=== PATIENT | male | born 1985 | race American Indian/Alaskan Native ===

== ENCOUNTER 2019-08-20 03:26 | Emergency (ER) | payer OTHER ==
[2019-08-20 03:34] VITALS: BP 117/81
[2019-08-20] MEDS ORDERED: HYDROcodone/ACETAMINOPHEN 5-325 MG TAB PO ONE (05:00)
--- NOTE | 2019-08-20 05:14 | Emergency Department Report ---
ED Lower Extremity HPI - General Chief Complaint: Extremity Injury, Lower Stated Complaint: HIP AND LEG INJURY ON THE JOB Time Seen by Provider: 08/20/19 04:53 Source: patient Mode of arrival: Ambulatory Limitations: No Limitations - History of Present Illness Initial Comments: Mr. Diez is a 34-year-old -Greek male who presents for right la teral hip pain for the past week. Patient works as a improvement coordinator. Denies fall injury or trauma, describes pain as 510 aching soreness, symptoms are exacerbated by bending and flexing lifting. There is mild limp but ambulation. Is no numbness no tingling no paralysis. symptoms are exacerbated by movement and palpation. MD Complaint: hip injury Onset/Timin -: week(s) Injury: Hip: Right (aching pain ) Type of Injury: unknown Place: home Severity: moderate Severity scale (0 -10): 4 Improves With: rest Worsens With: weight bearing Associated Symptoms: ambulatory - Related Data Previous Rx's Medication Instructions Recorded Last Taken Type Diclofenac Dr (Nf) 50 mg PO TID #30 tab 08/20/19 Unknown Rx methOCARBAMOL [Robaxin TAB] 500 mg PO BID PRN #20 tab 08/20/19 Unknown Rx predniSONE [Deltasone] 40 mg PO DAILY 5 Days #10 tablet 08/20/19 Unknown Rx Allergies Allergy/AdvReac Type Severity Reaction Status Date / Time No Known Allergies Allergy Verified 08/20/19 03:29 ED Review of Systems ROS: Stated complaint: HIP AND LEG INJURY ON THE JOB Other details as noted in HPI Constitutional: denies: chills, fever Eyes: denies: eye pain, eye discharge, vision change ENT: denies: ear pain, throat pain Respiratory: denies: cough, shortness of breath, wheezing Cardiovascular: denies: chest pain, palpitations Endocrine: no symptoms reported Gastrointestinal: denies: abdominal pain, nausea, diarrhea Genitourinary: denies: urgency, dysuria Musculoskeletal: arthralgia. denies: back pain, joint swelling Skin: denies: rash, lesions Neurological: denies: headache, weakness, paresthesias Psychiatric: denies: anxiety, depression Hematological/Lymphatic: denies: easy bleeding, easy bruising ED Past Medical Hx - Past Medical History Previous Medical History?: No - Surgical History Past Surgical History?: Yes Additional Surgical History: wrist - Social History Smoking Status: Current Every Day Smoker Substance Use Type: None - Medications Home Medications: Home Medications Medication Instructions Recorded Confirmed Last Taken Type Diclofenac Dr (Nf) 50 mg PO TID #30 tab 08/20/19 Unknown Rx methOCARBAMOL [Robaxin TAB] 500 mg PO BID PRN #20 tab 08/20/19 Unknown Rx predniSONE [Deltasone] 40 mg PO DAILY 5 Days #10 tablet 08/20/19 Unknown Rx ED Physical Exam - General Limitations: No Limitations General appearance: alert, in no apparent distress - Head Head exam: Present: atraumatic, normocephalic - Eye Eye exam: Present: normal appearance - ENT ENT exam: Present: mucous membranes moist - Neck Neck exam: Present: normal inspection, full ROM - Respiratory Respiratory exam: Present: normal lung sounds bilaterally. Absent: respiratory distress - Cardiovascular Cardiovascular Exam: Present: regular rate, normal rhythm. Absent: systolic murmur, diastolic murmur, rubs, gallop - GI/Abdominal GI/Abdominal exam: Present: soft, normal bowel sounds - Rectal Rectal exam: Present: deferred - Extremities Exam Extremities exam: Present: normal inspection - Back Exam Back exam: Present: normal inspection, full ROM, muscle spasm. Absent: tenderness, paraspinal tenderness, vertebral tenderness, rash noted - Neurological Exam Neurological exam: Present: alert, oriented X3, CN II-XII intact, normal gait - Psychiatric Psychiatric exam: Present: normal affect, normal mood - Skin Skin exam: Present: warm, dry, intact, normal color. Absent: rash ED Course Vital Signs 08/20/19 03:33 Temperature 98.0 F Pulse Rate 99 H Respiratory 18 Rate Blood Pressure 117/81 [Right] O2 Sat by Pulse 98 Oximetry ED Lower Extremity MDM - Radiology Data Radiology results: report reviewed, image reviewed Ordering Physician: GEORGE COTO NP Date of Service: 08/20/19 Procedure(s): XR hip 2-3V RT Accession Number(s): [id number] cc: GEORGE COTO NP Fluoro Time In Minutes: RIGHT HIP 3 VIEWS INDICATION / CLINICAL INFORMATION: Right hip pain. COMPARISON: None available. FINDINGS: BONES and JOINT(S): No acute fracture or subluxation. No significant arthritis. Nonspecific sclerosis is noted along the right humeral head. SOFT TISSUES: No significant abnormality. ADDITIONAL FINDINGS: None. IMPRESSION: Nonspecific sclerosis along the right humeral head. Avascular necrosis is a consideration. Please correlate with the clinical findings. Signer Name: Erasto Hunt MD Signed: 08/20/2019 5:35 AM Workstation Name: [email or web address] Transcribed By: LILA Dictated By: Erasto Hunt MD Electronically Authenticated By: Erasto Hunt MD Signed Date/Time: 08/20/19534 DD/ 3 - Medical Decision Making xray: arthralgia, nonspecific sclerois along humeral head, pt denies trauma, mother confirms family hx of arthralgia. plan, prenisone, diclofenac, methocarbamol follow up with ortho in 2-3 days, pt is not sepitic no fever no chills no n/v no tachycardial pt is relieved to 1/1o with medications given in ed. Pt is ambulatory with steady gait at this time. Critical care attestation.: If time is entered above; I have spent that time in minutes in the direct care of this critically ill patient, excluding procedure time. ED Disposition Clinical Impression: Arthralgia Qualifiers: Joint pain location: hip Laterality: right Qualified Code(s): M25.551 - Pain in right hip Strain of right hip Qualifiers: Encounter type: initial encounter Qualified Code(s): S76.011A - Strain of muscle, fascia and tendon of right hip, initial encounter Disposition: - TO HOME OR SELFCARE Is pt being admited?: No Does the pt Need Aspirin: No Condition: Stable Instructions: Arthralgia (ED) Prescriptions: predniSONE [Deltasone] 40 mg PO DAILY 5 Days #[address] (Nf) 50 mg PO TID #30 tab methOCARBAMOL [Robaxin TAB] 500 mg PO BID PRN #20 tab PRN Reason: Spasms Referrals: BARBIE PONCE MD [Staff Physician] - 3-5 Days Forms: Work/School Release Form(ED) Time of Disposition: 06:36
--- NOTE | 2019-08-20 05:40 | XRay Report ---
RIGHT HIP 3 VIEWS INDICATION / CLINICAL INFORMATION: Right hip pain. COMPARISON: None available. FINDINGS: BONES and JOINT(S): No acute fracture or subluxation. No significant arthritis. Nonspecific sclerosis is noted along the right humeral head. SOFT TISSUES: No significant abnormality. ADDITIONAL FINDINGS: None. IMPRESSION: Nonspecific sclerosis along the right humeral head. Avascular necrosis is a consideration. Please cor relate with the clinical findings. Signer Name: Erasto Hunt MD Signed: 08/20/2019 5:35 AM Workstation Name: [id number]
== END 2019-08-20 06:44 | disposition home or self-care (01) ==
LOC: ED 03:26
DX: S76.011A Strain of muscle, fascia and tendon of right hip, initial encounter (principal); F17.200 Nicotine dependence, unspecified, uncomplicated; Z79.899 Other long term (current) drug therapy; X58.XXXA Exposure to other specified factors, initial encounter; Y93.89 Activity, other specified; Y92.89 Other specified places as the place of occurrence of the external cause; Y99.0 Civilian activity done for income or pay
CPT/HCPCS: 99283